=== PATIENT | male | born 1975 | race Caucasian/White ===

== ENCOUNTER 2017-04-29 08:04 | Emergency (ER) | payer OTHER ==
[2017-04-29] MEDS: predniSONE 20 MG TAB PO (09:55)
[2017-04-29] MEDS: ALBUTEROL 0.083% (NEB) 2.5 MG/3 ML AMP NEB (10:17)
[2017-04-29] MEDS: IPRATROPIUM (NEB) 0.5 MG/2.5 ML AMP NEB (10:17)
== END 2017-04-29 10:41 | disposition home or self-care (01) ==
LOC: FTE 08:04
DX: J45.901 Unspecified asthma with (acute) exacerbation (principal)
CPT/HCPCS: 94664; 99284-25